=== PATIENT | female | born 1985 | race Caucasian/White ===

== ENCOUNTER → 2016-04-30 | Outpatient (CLI) | payer OTHER ==
--- NOTE | 2016-04-30 12:46 | US ---
April 30, [address] Edilberto Velazquez, Thank you for allowing me to see your patient, Mrs. Green for aneuploidy screening and perinat al consult. As you know she is a 30 year old G 1, P 0 . Her due date is 11/05/16 by LMP of 6. Based on this dating her current gestational age is 13 weeks 0 day(s) . She is a healthy woman w ithout chronic medical problems. She had reassuring NIPT in this . ULTRASOUND LMP: 01/30/16 Gestational age by LMP: 13 weeks 0 days KOSTAS by LMP: 11/05/16 CRL: 63 mm Gestational Age by CRL: 12 weeks 4 days KOSTAS by CRL: 11/08/16 Consistent with established dating (LMP or ultrasound): Yes Nuchal Translucency: 1.6 mm Nasal Bone: Present Heart Rate: 152 bpm Placenta: Anterior Right Ovary: Is not seen on today's ultrasound. Left Ovary: Is visualized and appears normal. It measures 2.0 x 1.7 x 2.5 cm. No overt structural anomalies were identified for this early ultrasound. The choroids, upper extremit ies and lower extremities were visualized and appear normal for this gestational age. Please note the full anatomic evaluation has not occurred for this early gestational age. Impression: 1. Intrauterine at 13 w, 0 d, KOSTAS of 11/05/16. 2. Nuchal translucency measurement today is 1.6 mm, which is reassuring. Recommendations: 1. Maternal serum AFP is recommended between 15-20 weeks to screen for the risk of open neural tube defects. 2. Recommend a detailed obstetrical ultrasound between 19 and 20 weeks to evaluate anatomy. 3. We reviewed the difference between genetic screening tests and definitive genetic diagnosis. She is aware that the screening tests have lowered her risk for certain genetic complications, but canno t provide definitive genetic diagnosis. Therefore, we discussed both CVS and amniocentesis including the procedure, risks, benefits, alternatives and limitations to the information received. Payal and her were happy with the testing they have completed and decline invasive testing. Thank you for allowing us the opportunity to evaluate your patient. Should you have any further ques tions or concerns please do not hesitate to contact me. Approximately 20 minutes were spent with the patient and 12 minutes were spent in face to face consu ltation. Angela Juarez MD [facility] Department of Obstetrics & Gynecology [facility]
--- NOTE | 2016-04-30 13:26 | US ---
First Trimester Obstetrical Sonography with Nuchal Translucency Measurement Clinical History: 30-year-old female presenting for early anatomic assessment and screening keanu luation. Technique: A curvilinear 5 MHz transducer was used to sonographically evaluate the fetus and placenta . M-mode Doppler was used to Dr. Angela Juarez was present. Comparison Study: None currently available. LMP: January 30, 2016, indicating an age of 13 weeks 0 days, and estimated date of delivery of 2016. Findings: There is a single viable intrauterine gestation with a crown-rump length of 63 mm, corresp onding to an age of 12 weeks 5 days. The heart rate is 152 bpm. The nuchal translucency is norm al, measuring 1.6 mm, and the nasal bone is seen. The placenta is forming anteriorly. There is no foc al fibroid or subchorionic hemorrhage. The maternal right ovary is not identified, however, the mater nal left ovary is normal, measuring 2.5 x 1.7 x 3.0 cm. Impression: There is a single viable intrauterine gestation with 2 normal early screening m safia. The patient should return at 20 weeks gestation for complete anatomic screening and repeat bi ometry. Please also refer to Dr. Juarez's separate assessments and specific recommendations for follow up.
== END ==
LOC: FIMAGING 09:15
PROVIDERS: ATTEND Obstetrics & Gynecology
DX: Z34.02 Encounter for supervision of normal first pregnancy, second trimester (principal); Z3A.13 13 weeks gestation of pregnancy

== ENCOUNTER → 2016-06-18 | Outpatient (CLI) | payer OTHER | LOC: FIMAGING 09:10 | PROVIDERS: ATTEND Obstetrics & Gynecology | DX: Z34.02 Encounter for supervision of normal first pregnancy, second trimester (principal); Z3A.20 20 weeks gestation of pregnancy ==